=== PATIENT | female | born 1950 | race Hispanic/Latino ===

== ENCOUNTER 2017-11-25 12:13 | Emergency (ER) | payer OTHER ==
[2017-11-25] MEDS ORDERED: DEXAMETHASONE SOD PHOSPHATE 10MG/ML 1ML VIAL ONE (12:45)
[2017-11-25] MEDS ORDERED: CEFTRIAXONE SODIUM 1 GM ONE (12:46)
[2017-11-25] MEDS ORDERED: LIDOCAINE HCL-MPF 1% 2ML VIAL ONE (12:46)
[2017-11-25] MEDS ORDERED: IPRATROPIUM/ALBUTEROL SULFATE 3 ML SOLUTION IH ONE (12:58)
== END 2017-11-25 14:04 | disposition home or self-care (01) ==
LOC: EDH 12:13
DX: J20.9 Acute bronchitis, unspecified (principal); K21.9 Gastro-esophageal reflux disease without esophagitis; Z90.49 Acquired absence of other specified parts of digestive tract
CPT/HCPCS: 71046; 87804 ×2; 94640; 96372 ×2; 99285; J0696; J1100; J3490

== ENCOUNTER → 2018-03-25 | Outpatient (CLI) | payer OTHER | END | disposition home or self-care (01) | LOC: RAH 13:28 | PROVIDERS: ATTEND Internal Medicine | DX: Z12.31 Encounter for screening mammogram for malignant neoplasm of breast (principal) | CPT/HCPCS: 77067 ==

== ENCOUNTER 2019-03-18 22:35 | Emergency (ER) | payer OTHER ==
[2019-03-18] MEDS ORDERED: KETOROLAC TROMETHAMINE 15MG/ML ONE (23:16)
[2019-03-18] MEDS ORDERED: DEXAMETHASONE SOD PHOSPHATE 4 MG/ML 1ML VIAL ONE (23:16)
== END 2019-03-19 00:14 | disposition home or self-care (01) ==
LOC: EDH 22:35
DX: J01.90 Acute sinusitis, unspecified (principal); F41.9 Anxiety disorder, unspecified; K21.9 Gastro-esophageal reflux disease without esophagitis
CPT/HCPCS: 96372 ×2; 99284; J1100; J1885

== ENCOUNTER → 2019-03-29 | Outpatient (CLI) | payer OTHER | END | disposition home or self-care (01) | LOC: RAH 13:52 | PROVIDERS: ATTEND Internal Medicine | DX: Z12.31 Encounter for screening mammogram for malignant neoplasm of breast (principal) | CPT/HCPCS: 77067 ==

== ENCOUNTER 2019-09-23 21:12 | Emergency (ER) | payer OTHER ==
[2019-09-23 21:58] LABS: APPEARANCE,URINE Cloudy (CLEAR); BILIRUBIN,URINE Negative (NEGATIVE); COLOR,URINE Yellow (YELLOW); GLUCOSE, URINE (UA) Negative (NEGATIVE); KETONES,URINE Trace mg/dL (NEGATIVE); LEUKOCYTE ESTERASE ,URINE Negative (NEGATIVE); NITRATE,URINE Negative (NEGATIVE); OCCULT BLOOD,URINE Small (NEGATIVE); PH,URINE 5.5 (5.0-8.0); PROTEIN,URINE Trace mg/dL (NEGATIVE)
[2019-09-23 22:02] LABS: BASOPHILS % (AUTO) 0.4 % (0.0-5.0); EOSINOPHILS % (AUTO) 0.4 % (0.0-8.0); HEMATOCRIT 37.1 % (36-48); LYMPHOCYTES % (AUTO) 21.2 % (21.0-51.0); MEAN CORPUSCULAR HEMOGLOBIN 29.9 pg (27.0-33.0); MEAN CORPUSCULAR HGB CONC 34.4 g/dL (32.0-36.0); MEAN CORPUSCULAR VOLUME 86.9 fL (79-99); MONOCYTES % (AUTO) 12.4 % (3.0-13.0); NEUTROPHILS % (AUTO) 65.6 % (40.0-77.0); NUCLEATED RED BLOOD CELLS 0.1 % (0.0-0.19); PLATELET COUNT (AUTO) 221 K/uL (130-400); RED BLOOD CELL COUNT(AUTO) 4.28 MIL/uL (4.00-5.50); RED CELL DISTRIBUTION WIDTH 12.9 % (11.0-15.5); WHITE BLOOD COUNT (AUTO) 7.4 K/uL (4.8-10.8)
[2019-09-23 22:09] LABS: BACTERIA,URINE Few /HPF (None Seen); CALCIUM OXALATE CRYSTALS,UR Many /LPF (None Seen); MUCUS,URINE Few LPF (None Seen); SQUAMOUS EPITHELIAL CELL,UR 0-2 /HPF (0-2)
[2019-09-23 22:12] LABS: RAPID GROUP A STREP NEGATIVE (NEGATIVE)
[2019-09-23] MEDS ORDERED: ONDANSETRON ODT 4 MG TAB ONE (22:14)
[2019-09-23 22:17] LABS: PARTIAL THROMBOPLASTIN TIME 26.4 SEC (26.3-35.5); PROTHROMBIN TIME 10.5 SEC (9.6-11.6)
[2019-09-23 22:18] LABS: CARBON DIOXIDE 27 mmol/L (21-32); CHLORIDE 104 mmol/L (101-111); CREATININE 0.6 mg/dL (0.5-1.5); GLOMERULAR FILTR. RATE CALC 105 mL/min (>60); GLUCOSE,RANDOM 125 mg/dL (70-105); POTASSIUM 3.8 mmol/L (3.5-5.1); SODIUM SERUM 139 mmol/L (136-145); UREA NITROGEN, BLOOD 15 mg/dL (7-18)
[2019-09-23 22:29] LABS: ALANINE AMINOTRANSFERASE 26 U/L (12-78); ALBUMIN 3.4 g/dL (3.5-5.0); ASPARTATE AMINOTRANSFERASE 18 U/L (10-37); BILIRUBIN,TOTAL 0.4 mg/dL (0.2-1.0); CREATINE KINASE, TOTAL 59 U/L (21-232); MYOGLOBIN 18 ng/mL (10-92); TOTAL PROTEIN, SERUM 7.7 g/dL (6.0-8.3); TROPONIN I < 0.04 ng/mL (0.00-0.06)
[2019-09-23] MEDS ORDERED: DIPHENHYDRAMINE HCL 25 MG CAPSULE ONE (23:10)
== END 2019-09-24 00:28 | disposition home or self-care (01) ==
LOC: EDH 21:12
DX: J00 Acute nasopharyngitis [common cold] (principal); F41.9 Anxiety disorder, unspecified; J32.9 Chronic sinusitis, unspecified; K21.9 Gastro-esophageal reflux disease without esophagitis
CPT/HCPCS: 36415; 71045; 80053; 81001; 82550; 83605; 83690; 83874; 84145; 84484; 85025; 85610; 85730; 87040; 87088; 87804 ×2; 87880; 93005; 99285; Q0163

== ENCOUNTER 2019-10-27 18:09 | Emergency (ER) | payer OTHER ==
[2019-10-27] MEDS ORDERED: ACETAMINOPHEN EXTRA STRENGTH 500 MG TABLET ONE (19:21)
[2019-10-27] MEDS ORDERED: LIDOCAINE 5% TOPICAL PATCH TP ONE (19:21)
== END 2019-10-27 20:22 | disposition home or self-care (01) ==
LOC: EDH 18:09
DX: S46.911A Strain of unspecified muscle, fascia and tendon at shoulder and upper arm level, right arm, initial encounter (principal); E78.00 Pure hypercholesterolemia, unspecified; Z90.49 Acquired absence of other specified parts of digestive tract; W51.XXXA Accidental striking against or bumped into by another person, initial encounter; Y93.89 Activity, other specified; Y92.89 Other specified places as the place of occurrence of the external cause; Y99.8 Other external cause status
CPT/HCPCS: 73030

== ENCOUNTER 2019-11-14 23:43 | Emergency (ER) | payer OTHER ==
[2019-11-15 00:12] LABS: APPEARANCE,URINE Clear (CLEAR); BILIRUBIN,URINE Negative (NEGATIVE); COLOR,URINE Yellow (YELLOW); GLUCOSE, URINE (UA) Negative (NEGATIVE); KETONES,URINE Negative (NEGATIVE); LEUKOCYTE ESTERASE ,URINE Negative (NEGATIVE); NITRATE,URINE Negative (NEGATIVE); OCCULT BLOOD,URINE Negative (NEGATIVE); PROTEIN,URINE Negative (NEGATIVE)
[2019-11-15] MEDS ORDERED: SODIUM CHLORIDE 0.9% 1000ML 1,000 ML IV ONE (00:25)
[2019-11-15] MEDS ORDERED: ONDANSETRON HCL 4 MG/2 ML VIAL ONE (00:25)
[2019-11-15] MEDS ORDERED: DIPHENOXYLATE HCL/ATROPINE 2.5/0.025 MG TAB PO ONE (00:26)
[2019-11-15 00:41] LABS: BASOPHILS % (AUTO) 0.2 % (0.0-5.0); EOSINOPHILS % (AUTO) 0.3 % (0.0-8.0); HEMATOCRIT 40.4 % (36-48); LYMPHOCYTES % (AUTO) 7.6 % (21.0-51.0); MEAN CORPUSCULAR HEMOGLOBIN 28.2 pg (27.0-33.0); MEAN CORPUSCULAR HGB CONC 32.4 g/dL (32.0-36.0); MEAN CORPUSCULAR VOLUME 87.1 fL (79-99); MONOCYTES % (AUTO) 5.6 % (3.0-13.0); NEUTROPHILS % (AUTO) 86.1 % (40.0-77.0); PLATELET COUNT (AUTO) 275 K/uL (130-400); RED BLOOD CELL COUNT(AUTO) 4.64 MIL/uL (4.00-5.50); RED CELL DISTRIBUTION WIDTH 12.6 % (11.0-15.5); WHITE BLOOD COUNT (AUTO) 13.9 K/uL (4.8-10.8)
[2019-11-15 01:03] LABS: CREATININE 0.8 mg/dL (0.5-1.5); POTASSIUM 3.9 mmol/L (3.5-5.1)
[2019-11-15 01:07] LABS: ALBUMIN 3.5 g/dL (3.5-5.0); BILIRUBIN,TOTAL 0.4 mg/dL (0.2-1.0); TOTAL PROTEIN, SERUM 7.8 g/dL (6.0-8.3)
== END 2019-11-15 03:27 | disposition home or self-care (01) ==
LOC: EDH 23:43
DX: K52.9 Noninfective gastroenteritis and colitis, unspecified (principal); F41.9 Anxiety disorder, unspecified; E78.00 Pure hypercholesterolemia, unspecified; K21.9 Gastro-esophageal reflux disease without esophagitis; Z90.49 Acquired absence of other specified parts of digestive tract
CPT/HCPCS: 36415; 74176; 80053; 81003; 83690; 85025; 87804 ×2; 96361; 96374; 99285; J2405; J7030

== ENCOUNTER 2022-07-19 08:55 | Emergency (ER) | payer OTHER ==
[~2022-07-19] VITALS: Ht 170.2 cm; Wt 72.6 kg
[2022-07-19 09:32] LABS: BASOPHILS % (AUTO) 0.2 % (0.0-5.0); EOSINOPHILS % (AUTO) 0.1 % (0.0-8.0); LYMPHOCYTES % (AUTO) 14.6 % (21.0-51.0); MEAN CORPUSCULAR HEMOGLOBIN 28.4 pg (27.0-33.0); MEAN CORPUSCULAR HGB CONC 32.8 g/dL (32.0-36.0); MEAN CORPUSCULAR VOLUME 86.7 fL (79-99); MONOCYTES % (AUTO) 3.1 % (3.0-13.0); NEUTROPHILS % (AUTO) 81.6 % (40.0-77.0); PLATELET COUNT (AUTO) 256 K/uL (130-400); RED CELL DISTRIBUTION WIDTH 12.8 % (11.0-15.5); WHITE BLOOD COUNT (AUTO) 8.4 K/uL (4.8-10.8)
[2022-07-19 09:53] LABS: APPEARANCE,URINE CLEAR (CLEAR); BILIRUBIN,URINE NEGATIVE (NEGATIVE); COLOR,URINE LIGHT-YELLOW (YELLOW); GLUCOSE, URINE (UA) NEGATIVE (NEGATIVE); KETONES,URINE NEGATIVE (NEGATIVE); LEUKOCYTE ESTERASE ,URINE NEGATIVE Leu/uL (NEGATIVE); NITRATE,URINE NEGATIVE (NEGATIVE); OCCULT BLOOD,URINE SMALL (NEGATIVE); PH,URINE 6.5 (5.0-8.0); PROTEIN,URINE NEGATIVE (NEGATIVE); UROBILINOGEN,URINE 0.2 mg/dL (0.2-1.0)
[2022-07-19 09:54] LABS: CREATININE 0.8 mg/dL (0.5-1.5); POTASSIUM 3.1 mmol/L (3.5-5.1)
[2022-07-19 09:57] LABS: MUCUS,URINE RARE LPF (None Seen); WBC,URINE 0-1 /HPF (0-1)
[2022-07-19 09:59] LABS: ALBUMIN 3.5 g/dL (3.5-5.0); TOTAL PROTEIN, SERUM 7.7 g/dL (6.0-8.3)
[2022-07-19 10:16] VITALS: BP 147/68
[2022-07-19] MEDS ORDERED: KCL 20 MEQ ERTAB PO ONE ×2 (10:30→10:34)
[2022-07-19] MEDS ORDERED: DIPH1TAB PO (10:33)
== END 2022-07-19 10:54 | disposition home or self-care (01) ==
LOC: EDH 08:55
DX: E87.6 Hypokalemia (principal); J06.9 Acute upper respiratory infection, unspecified; R19.7 Diarrhea, unspecified; Z20.822 Contact with and (suspected) exposure to COVID-19; E78.00 Pure hypercholesterolemia, unspecified; Z90.49 Acquired absence of other specified parts of digestive tract
CPT/HCPCS: 99283; 87635; 80053; 83690; 85025; 87880; 87804 ×2; 81001; 36415; C9803

== ENCOUNTER 2022-10-06 06:45 | Emergency (ER) | payer OTHER ==
[~2022-10-06] VITALS: Ht 160 cm; Wt 72.6 kg
[~2022-10-06 06:45] MED LIST: DIPH1TAB PO
[2022-10-06 07:15] LABS: BASOPHILS % (AUTO) 0.4 % (0.0-5.0); EOSINOPHILS % (AUTO) 0.9 % (0.0-8.0); HEMATOCRIT 36.4 % (36-48); LYMPHOCYTES % (AUTO) 33.1 % (21.0-51.0); MEAN CORPUSCULAR HEMOGLOBIN 28.8 pg (27.0-33.0); MEAN CORPUSCULAR HGB CONC 33.5 g/dL (32.0-36.0); MEAN CORPUSCULAR VOLUME 86.1 fL (79-99); MONOCYTES % (AUTO) 7.4 % (3.0-13.0); NEUTROPHILS % (AUTO) 57.7 % (40.0-77.0); PLATELET COUNT (AUTO) 280 K/uL (130-400); RED BLOOD CELL COUNT(AUTO) 4.23 MIL/uL (4.00-5.50); RED CELL DISTRIBUTION WIDTH 12.5 % (11.0-15.5); WHITE BLOOD COUNT (AUTO) 5.6 K/uL (4.8-10.8)
[2022-10-06 07:30] LABS: ALBUMIN 3.4 g/dL (3.5-5.0); CREATININE 0.6 mg/dL (0.5-1.5); POTASSIUM 3.2 mmol/L (3.5-5.1); TOTAL PROTEIN, SERUM 7.5 g/dL (6.0-8.3)
[2022-10-06] MEDS ORDERED: ONDANSETRON ODT 4MG TAB SL ONE (07:30)
[2022-10-06 08:04] VITALS: BP 151/86
[2022-10-06] MEDS ORDERED: D-ME118S47 PO (08:12)
[2022-10-06] MEDS ORDERED: ONDA4TAB10 PO (08:12)
[2022-10-06] MEDS ORDERED: CEPH500B PO (08:12)
== END 2022-10-06 08:26 | disposition home or self-care (01) ==
LOC: EDH 06:45
DX: J06.9 Acute upper respiratory infection, unspecified (principal); R11.0 Nausea; E78.00 Pure hypercholesterolemia, unspecified; I10 Essential (primary) hypertension; K21.9 Gastro-esophageal reflux disease without esophagitis; Z20.822 Contact with and (suspected) exposure to COVID-19; Z90.49 Acquired absence of other specified parts of digestive tract; Z79.899 Other long term (current) drug therapy
CPT/HCPCS: 99284; 71045; 87635; 84484; 80053; 85025; 87804 ×2; 36415; C9803

== ENCOUNTER 2022-11-12 08:14 | Emergency (ER) | payer OTHER ==
[~2022-11-12] VITALS: Ht 160 cm; Wt 68.9 kg
[~2022-11-12 08:14] MED LIST changes: +CEPH500B PO; +D-ME118S47 PO; +ONDA4TAB10 PO
[2022-11-12] MEDS ORDERED: IPRATROPIUM/ALBUTEROL SULFATE 3 ML SOLUTION IH ONE (08:30)
[2022-11-12] MEDS ORDERED: DIPHENHYDRAMINE HCL 25 MG CAPSULE PO ONE (08:30)
[2022-11-12] MEDS ORDERED: IPRATROPIUM 0.5 MG/2.5 ML INH IH ONE (08:40)
[2022-11-12] MEDS ORDERED: ALBUTEROL 0.083% 2.5 MG/3 ML INH IH ONE (08:40)
[2022-11-12] MEDS ORDERED: ALBUHFA IH (11:05)
[2022-11-12] MEDS ORDERED: LORA-868 PO (11:05)
[2022-11-12 11:19] VITALS: BP 130/78
== END 2022-11-12 11:19 | disposition home or self-care (01) ==
LOC: EDH 08:14
DX: J06.9 Acute upper respiratory infection, unspecified (principal); B97.89 Other viral agents as the cause of diseases classified elsewhere; K21.9 Gastro-esophageal reflux disease without esophagitis; I10 Essential (primary) hypertension; E78.00 Pure hypercholesterolemia, unspecified; Z90.49 Acquired absence of other specified parts of digestive tract; M19.90 Unspecified osteoarthritis, unspecified site; Z20.822 Contact with and (suspected) exposure to COVID-19; Z79.899 Other long term (current) drug therapy
CPT/HCPCS: 99284; 71045; 87635; 87804 ×2; 94640; Q0163; C9803

== ENCOUNTER 2023-02-13 01:08 | Emergency (ER) | payer OTHER ==
[~2023-02-13] VITALS: Ht 152.4 cm; Wt 70.3 kg
[~2023-02-13 01:08] MED LIST changes: +ALBUHFA IH; +LORA-868 PO
[2023-02-13 02:54] VITALS: BP 162/60
[2023-02-13] MEDS ORDERED: PRED20TA3 PO (03:25)
[2023-02-13] MEDS ORDERED: PREDNISONE 20 MG TABLET PO ONE (03:30)
== END 2023-02-13 03:37 | disposition home or self-care (01) ==
LOC: EDH 01:08
DX: B34.9 Viral infection, unspecified (principal); I10 Essential (primary) hypertension; E78.00 Pure hypercholesterolemia, unspecified; K21.9 Gastro-esophageal reflux disease without esophagitis; M19.90 Unspecified osteoarthritis, unspecified site; Z20.822 Contact with and (suspected) exposure to COVID-19; Z90.49 Acquired absence of other specified parts of digestive tract
CPT/HCPCS: 99284; 71045; 87635; 87804 ×2; C9803

== ENCOUNTER → 2023-09-06 | Outpatient (CLI) | payer OTHER ==
[~2023-09-06] MED LIST changes: +BROM118S48 PO; -D-ME118S47 PO; +PRED20TA3 PO
== END | disposition home or self-care (01) ==
LOC: RAH 13:18
PROVIDERS: ATTEND Internal Medicine
DX: Z12.31 Encounter for screening mammogram for malignant neoplasm of breast (principal)
CPT/HCPCS: 77067

== ENCOUNTER → 2024-07-11 | Outpatient (CLI) | payer OTHER ==
[~2024-07-11] MED LIST changes: +ONDA-243 PO; -ONDA4TAB10 PO
== END | disposition home or self-care (01) ==
LOC: RAH 10:02
PROVIDERS: ATTEND Internal Medicine Gastroenterology
DX: K44.9 Diaphragmatic hernia without obstruction or gangrene (principal); K21.9 Gastro-esophageal reflux disease without esophagitis
CPT/HCPCS: 74240

== ENCOUNTER → 2024-09-08 | Outpatient (CLI) | payer OTHER ==
--- NOTE | 2024-09-08 10:47 | HMCIMG ---
SCREENING MAMMOGRAM REASON: Annual Exam COMPARISON: none TECHNIQUE: CC and MLO views of the bilateral breasts were performed.CAD was performed as well. FINDINGS: Parenchymal density: There are scattered areas of fibroglandular density. There are no focal mass lesions. There are no pathologic appearing calcifications. There is no evidence of architectural distortion or skin thickening. IMPRESSION: Normal screening mammogram The patient was entered into a reminder system with a target due date for their next mammogram. BI-RADS CATEGORY 1: NEGATIVE Recommend monthly self breast exam as well as annual clinical examination. A negative x-ray should not delay biopsy if a dominant or clinically suspicious mass is present, since 8-10% of cancers are not identified by mammography. Dense breasts particularly, may obscure an underlying neoplasm. Some of these may be detected clinically and therefore, clinical examination is an essential part of breast evaluation.
== END | disposition home or self-care (01) ==
LOC: RAH 09:28
PROVIDERS: ATTEND Internal Medicine
DX: Z12.31 Encounter for screening mammogram for malignant neoplasm of breast (principal); R92.30 Dense breasts, unspecified
CPT/HCPCS: 77067

== ENCOUNTER 2024-11-16 07:22 | Observation (INO) | payer OTHER ==
[2024-11-13 14:24] LABS: BASOPHILS # (AUTO) 0.03 K/uL (0.00-0.20); BASOPHILS % (AUTO) 0.5 % (0.0-5.0); EOSINOPHILS # (AUTO) 0.05 K/uL (0.00-0.70); EOSINOPHILS % (AUTO) 0.8 % (0.0-8.0); HEMATOCRIT 39.7 % (36-48); IMMATURE GRANULOCYTE ABSOLUTE 0.01 K/uL (0-1); LYMPHOCYTES # (AUTO) 2.2 K/uL (1.0-4.8); LYMPHOCYTES % (AUTO) 35.5 % (21.0-51.0); MEAN CORPUSCULAR HGB CONC 32.2 g/dL (32.0-36.0); MEAN CORPUSCULAR VOLUME 89.8 fL (79-99); MONOCYTES # (AUTO) 0.5 K/uL (0.1-1.0); MONOCYTES % (AUTO) 8.3 % (3.0-13.0); NEUTROPHILS # (AUTO) 3.3 K/uL (1.8-7.7); NEUTROPHILS % (AUTO) 54.7 % (40.0-77.0); PLATELET COUNT (AUTO) 255 K/uL (130-400); RED BLOOD CELL COUNT(AUTO) 4.42 MIL/uL (4.00-5.50); RED CELL DISTRIBUTION WIDTH 13.6 % (11.0-15.5); WHITE BLOOD COUNT (AUTO) 6.1 K/uL (4.8-10.8)
[2024-11-13 14:38] VITALS: BP 168/69; PULSE 64; RESP 14; TEMP 97.5
[2024-11-13 14:42] LABS: CREATININE 0.5 mg/dL (0.5-1.0); POTASSIUM 4.2 mmol/L (3.5-5.1)
--- NOTE | 2024-11-13 15:15 | EKG ---
[facility] Test Date: 2024-11-13 Test Time: 15:05:55 Pat Name: JOSÉ MIGUEL CASTILLO Department: [facility] Room: Gender: F Forensic Dna Analyst: [id number] : 1950 Requested By: ADOLFO POMPA Order Number: [id number] Reading MD: Eliazar Neumann Measurements Intervals [place] Rate: 68 P: 52 LA: 148 QRS: 37 QRSD: 90 T: 61 QT: 448 QTc: 478 Interpretive Statements Sinus rhythm Compared to ECG 09/23/2019 22:00:36 No significant changes Electronically Signed On 11-14-2024 17:07:04 PRISM MEASURER by Eliazar Neumann Please click the below link to view image of tracing.
[~2024-11-16] VITALS: Ht 160 cm; Wt 74.3 kg
[2024-11-16] VITALS (33 sets, daily range): BP systolic 100–150; BP diastolic 43–72; PULSE 64–89; RESP 12–18; TEMP 97.2–98.2; O2SAT 95–97
[~2024-11-16 07:22] MED LIST changes: -ALBUHFA IH; +ALEN70TA80 PO; +AMLO2.5T4 PO; -BROM118S48 PO; -CEPH500B PO; -DIPH1TAB PO; -LORA-868 PO; +LOSA50TA64 PO; +MULT-1250 PO; -ONDA-243 PO; +PANT40TA55 PO; -PRED20TA3 PO; +ROSU5TAB51 PO; +VITAMIN D3 PO
[2024-11-16] MEDS: ceFAZolin SODIUM 2 GM VIAL ONE (08:21)
[2024-11-16] MEDS: LACTATED RINGERS 1000ML 1,000 ML IV ONE (08:21)
[2024-11-16] MEDS ORDERED: BUPIvacaine/PF 0.5% 30ML VIAL ONE (08:31)
[2024-11-16] MEDS ORDERED: MIDAZOLAM HCL 1 MG/ML 2ML VIAL ONE (09:41)
[2024-11-16] MEDS ORDERED: proPOFol 10 MG/ML 20ML VIAL IV ONE (09:41)
[2024-11-16] MEDS ORDERED: SUCCINYLCHOLINE CHLORIDE 20 MG/ML 10 ML VIAL ONE (09:41)
[2024-11-16] MEDS ORDERED: LIDOCAINE PF 100MG/5ML (2%) SYRINGE 5ML ONE (09:41)
[2024-11-16] MEDS ORDERED: FENTanyl CITRate PF 50 MCG/1 ML 2ML VIAL ONE (09:42)
[2024-11-16] MEDS ORDERED: rocuRONium bROMide 10MG/1ML 5ML VL ONE (09:42)
[2024-11-16] MEDS ORDERED: dexaMETHasone SOD PHOSPHATE 10MG/ML 1ML VIAL ONE (09:45)
[2024-11-16] MEDS ORDERED: ondanSETRON 4MG INJ ONE (09:45)
[2024-11-16] MEDS: ceFAZolin SODIUM 2 GM VIAL IVPB ONE ×2 (10:00)
[2024-11-16] MEDS ORDERED: GLYCOPYRROLATE 0.2 MG/ML 5 ML VIAL ONE (11:29)
[2024-11-16] MEDS ORDERED: NEOSTIGMINE METHYLSULFATE 1MG/ML IV ONE (11:29)
[2024-11-16] MEDS ORDERED: MEPERIDINE-PF 25 MG/ML SYG ONE (11:33)
[2024-11-16] MEDS ORDERED: PROCHLORPERAZINE 10MG/2ML INJ IV PRN (12:00)
[2024-11-16] MEDS ORDERED: ondanSETRON 4MG INJ IVP PRN (12:00)
[2024-11-16] MEDS ORDERED: HYDROcod/acetaMINOPHEN 7.5/325 MG 15 ML UDCUP PO PRN (12:00)
[2024-11-16] MEDS ORDERED: ENOXAPARIN SODIUM 30 MG/0.3 ML SQ SCH (12:00)
[2024-11-16] MEDS ORDERED: hydroMORPHone 0.5 MG SYG (0.5MG/0.5ML) IVP PRN (12:00)
--- NOTE | 2024-11-16 12:16 | PN ---
GENERAL SURGERY PROGRESS NOTE Date/Time Patient Seen: [ 11/16/24 1215] Problem List: [ ] Interval History: [POD 0. Pain tolerable w PRN medication.] Current Medications Medications (Trade) Dose Ordered Sig/Shahida Route Start Time Stop Time Status Last Admin Dose Admin Enoxaparin Sodium (Lovenox) 40 mg DAILY SQ 11/16/24 12:00 11/16/24 12:10 DC Enoxaparin Sodium (Lovenox) 40 mg DAILY SQ 11/16/24 12:30 12/16/24 12:29 Famotidine (Pepcid 20mg Vial) 20 mg BID IV 11/16/24 21:00 12/16/24 20:59 Lactated Ringer's 1,000 ml @ 150 mls/hr Q6H40M IV 11/16/24 12:00 12/16/24 11:59 Physical Examination: GENERAL: [No acute distress.] ABD: [incisions clean, dry and intact, Dermabond in place] Vital Signs (last 8hr) Date Time Temp Pulse Resp B/P (MAP) Pulse Ox O2 Delivery O2 Flow Rate FiO2 11/16/24 12:05 73 16 116/55 100 Nonrebreathing Mask 15.0 11/16/24 12:00 70 14 108/50 100 Nonrebreathing Mask 15.0 11/16/24 11:55 74 12 106/52 100 Nonrebreathing Mask 15.0 11/16/24 11:50 70 14 108/55 99 Nonrebreathing Mask 15.0 11/16/24 11:45 71 12 101/62 98 Nonrebreathing Mask 15.0 11/16/24 11:41 97.2 89 14 126/59 99 Nonrebreathing Mask 15.0 11/16/24 07:40 98.2 83 18 141/61 99 Room Air Laboratory: [ ] Diagnostics / Radiology: [Copy/Paste Echos/Imaging Report here] Impression and Plan: [POD 0. Plan is for d/c home in the next day or 2, as long as pt tolerating PO, ambulatory and pain under control. Discussed w pt and family, they understand and agree. ] ADOLFO POMPA MD Nov 16, 2024 12:16
--- NOTE | 2024-11-16 12:16 | OP ---
Operative Note: DATE OF PROCEDURE: 11/16/24 SURGEON: ADOLFO POMPA MD WIRE STRIPPER: Zeus Pompa MD PA-C ANESTHESIA: General and Local ANESTHESIOLOGIST/COMPUTER SECURITY SPECIALIST: [facility] [place] [facility] [place] PREOPERATIVE DIAGNOSIS: Symptomatic hiatal hernia with incarcerated proximal stomach POSTOPERATIVE DIAGNOSIS: As above SYNOPSIS: Hernia repair with mesh reinforcement, Kristy fundoplication PROCEDURE: 1. Robotic assisted hiatal hernia repair with mesh reinforcement 2. Kristy fundoplication 3. EGD ESTIMATED BLOOD LOSS: min, <30cc INDICATIONS: As above DESCRIPTION OF PROCEDURE: After standard precautions a veress needle and optical trocar were used to enter the abdomen. The remainder of instruments were placed under direct vision. We opened pars flaccida and identified the Right farhad of the diaphragm. We entered a nearly avascular plane in to the mediastinum and circumferentially mobilized the distal esophagus and proximal stomach which had been incarcerated in the hernia. At the end of the dissection the [place] was resting below the hiatus without tension. We repaired the hernia by suturing R and L farhad back in reapproximation starting at the crossing fibers and working our way up towards the posterior esophageal wall. Care was taken to avoid overtightening. We placed a mesh overlay, cut in horseshoe shape) and sutured it in place to prevent mesh migration. Due to the size of the hernia, we had to close a loose gap in the muscles anterior to the esophagus. We ended by mobilizing the proximal fundus and wrapping the fundus circumferentially. We sutured the fundoplication for 3-4cm in cranio-caudal length. The egd scope was used throughout to examine the anatomy. Retroflexed view demonstrated appropriate closure of the hernia and healthy tissue. All instrument counts were correct prior to ending the case. ADOLFO POMPA MD Nov 16, 2024 12:16
[2024-11-16] MEDS: ENOXAPARIN SODIUM 40 MG/0.4 ML SYRINGE SQ SCH (12:30)
[2024-11-16] MEDS: ketOROlac 15MG/ML VIAL (15MG/ML) ONE (12:44)
[2024-11-16] MEDS: LACTATED RINGERS 1000ML 1,000 ML IV SCH (14:40)
--- NOTE | 2024-11-16 14:40 | NUR ---
PT IN ROOM 305 [facility]IM[facility]IS RECEIVED REPORT FROM PACU. INTRODUCED TO PT, PT IS AOX3, POST OP VITALS IN PLACED, PT STATES SHE HAS A SLIGHT SORE THROAT AND IF PT CAN RECEIVE ANY WATER, EXPLAINED TO PT I WILL REVIEW ORDERS AND WILL PROVIDE ANY FLUIDS AND PAIN MEDICATIONS IF OK. VERBALIZED UNDERSTANDING. FAMILY MEMBERS AT BEDSIDE, SKIN INTACT X6 INCISIONS TO ABDOMEN WITH DERMABOND. DENIES ANY PAIN AT THIS TIME JUST A SLIGHT DISCOMFORT TO ABDOMEN AND WILL ASK FOR PAIN MEDICATION LATER BUT DENIES ANY PAIN MEDICATION AT THIS TIME.BED LOW AND LOCKED, SIDERAILS X2 UP, CALL LIGHT WITHIN REACH AND WILL CONTINUE TO MONITOR.
[2024-11-16] MEDS: ketOROlac 15MG/ML VIAL (15MG/ML) IV PRN (15:45)
[2024-11-16] MEDS: FAMOTIDINE 20MG VIAL IV SCH (20:04)
[2024-11-17] VITALS: BP 122/45; PULSE 56; RESP 18; TEMP 98.2
[2024-11-17 04:00] VITALS: BP 133/56; PULSE 51; RESP 18; TEMP 98.3
[2024-11-17 08:16] VITALS: BP 148/54; PULSE 53; RESP 16; TEMP 98
[2024-11-17 09:00] VITALS: O2SAT 98
--- NOTE | 2024-11-17 09:27 | PN ---
GENERAL SURGERY PROGRESS NOTE Date/Time Patient Seen: [ November 17, 2024 at 9:00 a.m.] Problem List: [ ] Interval History: [The patient is a pleasant 74-year-old female status post hiatal hernia repair with Kristy fundoplication done by Dr. Luis Antonio Mcarthur. The patient tolerated the procedure well. The patient is awake alert and oriented x3 and resting comfortably in bed. The patient is accompanied by family and does not show signs of acute distress. The patient endorses pain to shoulders and epigastric area that are tolerable with p.r.n. medication. The patient is tolerating a clear liquid diet very well without any upper or lower GI symptoms. The patient is voiding and burping. Denies passing flatus. The patient has been ambulating minimally but overall feels well. The patient is clinically stable and vital signs are unremarkable. The patient is overall happy with the procedure and is interested in discharging home today.] Current Medications Medications (Trade) Dose Ordered Sig/Shahida Route Start Time Stop Time Status Last Admin Dose Admin Enoxaparin Sodium (Lovenox) 40 mg DAILY SQ 11/16/24 12:00 11/16/24 12:10 DC Enoxaparin Sodium (Lovenox) 40 mg DAILY SQ 11/16/24 12:30 12/16/24 12:29 Famotidine (Pepcid 20mg Vial) 20 mg BID IV 11/16/24 21:00 12/16/24 20:59 11/16/24 20:04 20 MG Lactated Ringer's 1,000 ml @ 150 mls/hr Q6H40M IV 11/16/24 12:00 12/16/24 11:59 11/16/24 20:04 150 MLS/HR Physical Examination: GENERAL: [No acute distress.] HEAD: [Normal with no signs of head trauma.] EYES: [PERRLA, EOMI, conjunctiva and sclera normal.] ENT: [Hearing grossly intact, normal oropharynx.] NECK: [Supple without JVD. There is no tenderness, lymphadenopathy, or masses. No thyromegaly. Normal carotid upstrokes without bruits.] LUNGS: [Clear breath sounds bilaterally. There are right basilar rales one third of the way up the chest. No wheezes, or rhonchi.] HEART: [Normal rate and rhythm. Normal S1 and S2 without mumurs, gallop or rub.] VASC: [Peripheral pulses +2 bilaterally.] ABD: [Bowel sounds normal, soft, nontender, no masses, no organomegaly. No audible bruits.] : [Not examined] LYMPH: [No lymphadenopathy noted.] EXT: [No clubbing, cyanosis or edema.] SKIN: [No rashes or lesions noted.] NEURO: [Awake, alert, and oriented x3. No focal sensory or strength deficits noted.] Vital Signs (last 8hr) Date Time Temp Pulse Resp B/P (MAP) Pulse Ox O2 Delivery O2 Flow Rate FiO2 11/17/24 08:16 98.1 53 16 148/54 968 Room Air 11/17/24 04:00 98.2 51 18 133/56 97 Room Air Laboratory: [ ] Impression and Plan: [Postoperative day 1 The patient is progressing well. We will continue to monitor and treat pain. GI/DVT prophylaxis recommended and encouraged. Incision care, hydration, activity and dietary restrictions discussed with the patient. The patient understands and agrees. The patient may advance to a full liquid diet, resume all home medications. The plan is to discharge the patient home today and follow up in clinic in the next 7 days. Patient is scheduled for next Wednesday and has postoperative medications waiting for her in the pharmacy. ] CHAUNCEY GARCIA Nov 17, 2024 09:27
--- NOTE | 2024-11-17 09:29 | DS ---
Discharge Summary Assessment The patient is postoperative day 1 of robotic assisted hiatal hernia repair with Kristy fundoplication. Tolerated the procedure well. Pain is well managed. Tolerating oral intake without any issue and voiding freely. Hospital Course The patient is postoperative day 1 from robotic assisted hernia repair surgery and tolerating the procedure very well. There are no obvious signs of complications. Patient is clinically stable and vital signs are unremarkable. The patient will continue a full liquid diet upon discharge and resume home medications. The patient will be discharged home today with a follow-up established for next Wednesday. Patient's preferred pharmacy on file and we sent postoperative medications from my office staff. CHAUNCEY GARCIA Nov 17, 2024 09:29
[2024-11-17 11:48] VITALS: BP 131/61; PULSE 55; RESP 18; TEMP 98.1
--- NOTE | 2024-11-17 12:30 | NUR ---
DC NOTE DC INSTRUCTIONS AND FOLLOW UP APPOINTMENT ALREADY ESTABLISH WITH OFFICE GIVEN TO PT AND DAUGHTER AT BEDSIDE, VERBALIZED UNDERSTANDING. PIV REMOVED, CATHETER INTACT, DENIES ANY PAIN OR DISCOMFORT AT THIS TIME. x5 INCISIONS WITH DERMABOND, CLEAN NO REDNESS NOTED, PT IS WHEELED DOWNSTAIRS WITH HUMAN RESOURCES REPRESENTATIVE INTO VIA PRIVATE CAR. NO FURTHER COMMENTS OR CONCERNS AT THI TIME.
== END 2024-11-17 12:35 | disposition home or self-care (01) ==
LOC: DAH 07:22 → DAHIP 07:23 → DAH 07:23 → INTOOBSV 07:23 → 3BH 14:15
PROVIDERS: ADMIT Surgery; ATTEND Surgery
DX: K44.9 Diaphragmatic hernia without obstruction or gangrene (principal); Z79.899 Other long term (current) drug therapy
CPT/HCPCS: 80048; 85025; 86850; 86900; 86901; 36415; 93005; 43282; 96374; 96375; 96376; 96372; 97161; 97116; A6260; G0378 ×13; A4223 ×2; A4600; A4663; J7120 ×2; A4215 ×2; J3490 ×4; J3010; J1100; J0330; J2003; J2250; J2704; J2405; J2710; J0665 ×2; J2175; J1885 ×2; J0690 ×2; C1781; A4930; A4222; A4221; A4216; J1650; 43235

== ENCOUNTER → 2025-09-10 | Outpatient (CLI) | payer OTHER ==
--- NOTE | 2025-09-11 15:40 | HMCIMG ---
DIGITAL BILATERAL SCREENING MAMMOGRAM Technique: The digital mammographic examination of both breasts in craniocaudal and mediolateral oblique views along with CAD was obtained. History: This is a 75 years year-old female 4, para3 Ab1. Patient has no family history of breast cancer. Patient has no complaint Reference:Prior mammogram from 09/08/2024, 09/06/2023, 03/29/2019 are available for comparison. Breast composition: Breast composition B: There are scattered areas of fibroglandular density. Finding: The digital mammographic examination of both breasts in craniocaudal and mediolateral oblique view along with CAD demonstrates both breasts to BE mildly dense due to fibroglandular stromal elements. There are benign vascular calcification suggesting of atherosclerotic changes. There there are solitary benign macrocalcification in the left subareolar region unchanged from prior study.. There is no evidence of any dendritic mass, cluster microcalcification or architectural distortion. The retromammary fat appears to be normal. IMPRESSION: Unchanged from prior mammography. NO RADIOGRAPHIC EVIDENCE OF MALIGNANT CHANGES. WE WOULD RECOMMEND ANNUAL FOLLOW UP WITH TOMOSYNTHESIS UNLESS OTHERWISE CLINICALLY INDICATED. FINAL ASSESSMENT: ACR: BI-RAD - 1. Negative Mammogram. NOTE: IF A WORK-UP OF THIS PATIENT LEADS TO A BIOPSY, PLEASE FORWARD A COPY OF THE PATHOLOGY REPORT TO OUR OFFICE REQUIRED BY SA EFFECTIVE JULY 25, 1994. A NEGATIVE MAMMOGRAM SHOULD NOT PRECLUDE BIOPSY OF A CLINICALLY PALPABLE SUSPICIOUS MASS, 10% OF BREAST CANCERS ARE MAMMOGRAPHICALLY OCCULT. THIS MAMMOGRAPHY FACILITY IS FULLY ACCREDITED BY THE FOOD AND DRUG ADMINISTRATION (FDA). THANK YOU FOR THIS REFERRAL.
== END | disposition home or self-care (01) ==
LOC: RAH 10:59
PROVIDERS: ATTEND Internal Medicine
DX: Z12.31 Encounter for screening mammogram for malignant neoplasm of breast (principal); R92.323 Mammographic fibroglandular density, bilateral breasts
CPT/HCPCS: 77067